=== PATIENT | female | born 1945 | race Caucasian/White ===

== ENCOUNTER 2018-07-09 20:37 | Inpatient (IN) | payer MEDICARE, MEDICAID | END 2018-07-16 17:30 | LOC: ED HOLD 07-10 01:04 → ER 20:37 → ICU 2S 07-10 05:05 → PCU 3S 07-15 16:45 | DX: I95.9 Hypotension, unspecified (principal); R65.11 Systemic inflammatory response syndrome (SIRS) of non-infectious origin with acute organ dysfunction; N17.9 Acute kidney failure, unspecified; J44.1 Chronic obstructive pulmonary disease with (acute) exacerbation; I48.91 Unspecified atrial fibrillation; I50.9 Heart failure, unspecified ==

== ENCOUNTER 2018-08-26 14:35 | Emergency (ER) | payer MEDICARE, MEDICAID ==
[~2018-08-26] VITALS: Ht 160 cm; Wt 140.0 kg
[~2018-08-26 14:35] MED LIST: ALBU2.5V13 NEB; ALBU8.5H8 INH; ALLO100T PO; APIX5TAB3 PO; BECL8.7A6 INH; CHLO25TA10 PO; COLC0.6T67 PO; COMMODE; DILT240C90 PO; ESOM20CA PO; FAMO40TA7 PO; FLUT16SP26 BOTHNARES; FURO40TA4 PO; HYDR-4353 PO; LEVO125T8 PO; LISI-232 PO; MONT10TA21 PO; OXYGEN; POTA10TA36 PO
[2018-08-26 14:37] VITALS: BP 143/37
[2018-08-26 15:14] LABS: BASOPHILS # (AUTO) 0.1 X10'3 (0-0.2); BASOPHILS % (AUTO) 0.7 % (0-1); EOSINOPHILS # (AUTO) 0.2 X10'3 (0-0.9); EOSINOPHILS % (AUTO) 1.9 % (0-6); HEMATOCRIT 33.4 % (35.0-45.0); HEMOGLOBIN 10.4 g/dl (12.0-16.0); LYMPHOCYTES # (AUTO) 2.6 X10'3 (1.1-4.8); LYMPHOCYTES % (AUTO) 26.5 % (21-51); MEAN CORPUSCULAR HEMOGLOBIN 25.8 PG (27.0-31.0); MEAN PLATELET VOLUME 7.6 FL (7.4-10.4); MONOCYTES % (AUTO) 9.7 % (2-12); NEUTROPHILS # (AUTO) 6.1 X10'3 (1.8-7.7); NEUTROPHILS % (AUTO) 61.2 % (42-75); PLATELET COUNT 439 X10'3 (140-440); RED BLOOD COUNT 4.02 X10'6 (4.20-5.60); RED CELL DISTRIBUTION WIDTH 19.1 % (11.5-14.5); WHITE BLOOD COUNT 9.9 X10'3 (4.5-11.0)
[2018-08-26 15:33] LABS: ALANINE AMINOTRANSFERASE 18 U/L (12-78); ALBUMIN 2.6 G/DL (3.4-5.0); ALBUMIN/GLOBULIN RATIO 0.7 (1.1-1.5); ALKALINE PHOSPHATASE 123 IU/L (46-116); ANION GAP 7 (8-16); ASPARTATE AMINO TRANSFERASE 14 U/L (10-37); BILIRUBIN,TOTAL 0.2 MG/DL (0.1-1.0); BLOOD UREA NITROGEN 22 MG/DL (7-18); BUN/CREATININE RATIO 13.2 (6.6-38.0); CALCIUM 8.8 MG/DL (8.5-10.1); CHLORIDE 107 MMOL/L (99-107); CREATININE 1.67 MG/DL (0.40-0.90); GLUCOSE 111 MG/DL (70-104); POTASSIUM 5.3 MMOL/L (3.5-5.1); SODIUM 139 MMOL/L (135-145); TOTAL CARBON DIOXIDE 25.4 MMOL/L (24-32); TOTAL PROTEIN 6.5 G/DL (6.4-8.2); eGFR 30 ML/MIN
[2018-08-26 15:44] LABS: ANISOCYTOSIS 2+; PLATELET ESTIMATE NORMAL; SCHISTOCYTES FEW
--- NOTE | 2018-08-26 18:55 | NUR ---
SENT HERE BY CLINIC DUE TO LOW HGB, LEVELS CHECKED AND BETTER THAN PREVIOUS VISIT AT 10
== END 2018-08-26 19:20 | disposition home or self-care (01) ==
LOC: ER 14:36
DX: E87.5 Hyperkalemia (principal); D64.9 Anemia, unspecified; I10 Essential (primary) hypertension; J44.9 Chronic obstructive pulmonary disease, unspecified; E03.9 Hypothyroidism, unspecified; Z90.49 Acquired absence of other specified parts of digestive tract; Z98.890 Other specified postprocedural states; Z88.0 Allergy status to penicillin; Z88.2 Allergy status to sulfonamides; Z79.01 Long term (current) use of anticoagulants; Z79.899 Other long term (current) drug therapy
CPT/HCPCS: 36415; 80053; 80162; 85025; 99283

== ENCOUNTER 2018-12-31 20:56 | Emergency (ER) | payer MEDICARE, MEDICAID ==
[~2018-12-31] VITALS: Ht 160 cm; Wt 115.5 kg
[2018-12-31 22:08] VITALS: BP 96/74
--- NOTE | 2018-12-31 22:10 | NUR ---
PT SLEEPING IN WHEELCHAIR WHEN ENTERED ROOM, PT DID NOT START COMPLAINING AND CRYING IN PAIN UNTIL AFTER I WOKE HER UP.
[2018-12-31] MEDS ORDERED: normal saline 1000ML IV soln IVB ONE (22:25)
[2018-12-31] MEDS ORDERED: ondansetron/PF 4mg/2ml inj IV ONE (22:25)
[2018-12-31] MEDS ORDERED: fentaNYL/PF 50MCG/1 ML 2ML syringe IV ONE (22:25)
[2018-12-31 22:57] LABS: BASOPHILS # (AUTO) 0.1 X10'3 (0-0.2); BASOPHILS % (AUTO) 0.6 % (0-1); EOSINOPHILS # (AUTO) 0.2 X10'3 (0-0.9); EOSINOPHILS % (AUTO) 1.4 % (0-6); HEMATOCRIT 32.5 % (35.0-45.0); HEMOGLOBIN 10.5 g/dl (12.0-16.0); LYMPHOCYTES # (AUTO) 2.5 X10'3 (1.1-4.8); LYMPHOCYTES % (AUTO) 19.8 % (21-51); MEAN CORPUSCULAR HEMOGLOBIN 27.2 PG (27.0-31.0); MEAN CORPUSCULAR HGB CONC 32.2 g/dL (33.0-36.5); MEAN CORPUSCULAR VOLUME 84.4 FL (78-98); MEAN PLATELET VOLUME 7.4 FL (7.4-10.4); MONOCYTES # (AUTO) 0.8 X10'3 (0-0.9); MONOCYTES % (AUTO) 6.2 % (2-12); PLATELET COUNT 400 X10'3 (140-440); RED BLOOD COUNT 3.85 X10'6 (4.20-5.60); RED CELL DISTRIBUTION WIDTH 18.8 % (11.5-14.5); WHITE BLOOD COUNT 12.5 X10'3 (4.5-11.0)
[2018-12-31 23:44] LABS: CLARITY,URINE CLEAR (Clear); COLOR,URINE YELLOW (Yellow); GLUCOSE, URINE NEGATIVE (Neg); KETONES,URINE NEGATIVE (Neg); LEUKOCYTE ESTERASE ,URINE NEGATIVE (Neg); NITRITES, URINE NEGATIVE (Neg); OCCULT BLOOD,URINE NEGATIVE (Neg); PROTEIN,URINE NEGATIVE (Neg); UROBILINOGEN,URINE 0.2 E.U/dL (0.2-1.0)
[2018-12-31 23:45] LABS: UA COLLECTION TYPE VOIDED
[2018-12-31 23:56] LABS: ALANINE AMINOTRANSFERASE 32 U/L (12-78); ALBUMIN/GLOBULIN RATIO 0.7 (1.1-1.5); ALKALINE PHOSPHATASE 179 IU/L (46-116); ANION GAP 8 (8-16); ASPARTATE AMINO TRANSFERASE 25 U/L (10-37); BILIRUBIN,TOTAL 0.4 MG/DL (0.1-1.0); BLOOD UREA NITROGEN 50 MG/DL (7-18); BUN/CREATININE RATIO 26.2 (6.6-38.0); CHLORIDE 103 MMOL/L (99-107); CREATININE 1.91 MG/DL (0.40-0.90); GLUCOSE 123 MG/DL (70-104); LIPASE 255 U/L (73-393); POTASSIUM 4.4 MMOL/L (3.5-5.1); SODIUM 137 MMOL/L (135-145); TOTAL CARBON DIOXIDE 26.5 MMOL/L (24-32); TOTAL PROTEIN 7.1 G/DL (6.4-8.2); eGFR 26 ML/MIN
[2019-01-01] MEDS ORDERED: morphine 4 MG/ML inj SYRINge IV ONE (00:10)
[2019-01-01] MEDS ORDERED: METH500T PO (00:26)
== END 2019-01-01 00:45 | disposition home or self-care (01) ==
LOC: ER 20:58
DX: R10.813 Right lower quadrant abdominal tenderness (principal); I10 Essential (primary) hypertension; J44.9 Chronic obstructive pulmonary disease, unspecified; E03.9 Hypothyroidism, unspecified; G89.29 Other chronic pain; Z87.442 Personal history of urinary calculi; Z90.49 Acquired absence of other specified parts of digestive tract; Z88.0 Allergy status to penicillin; Z88.2 Allergy status to sulfonamides; Z79.899 Other long term (current) drug therapy; Z79.2 Long term (current) use of antibiotics
CPT/HCPCS: 36415; 71045; 74176; 80053; 81003; 83690; 84145; 85025; 96374; 96375; 99284; J2270; J2405; J3010; J7040

== ENCOUNTER 2019-04-15 18:59 | Inpatient (IN) | payer MEDICARE, MEDICAID ==
[~2019-04-15] VITALS: Ht 160 cm; Wt 129.8 kg
[~2019-04-15 18:59] MED LIST changes: +ALBU18HF2 IH; +HYDR-3965 PO; +LEVO500T2 PO; +METH500T PO; +PRED20TA PO
[2019-04-15] MEDS ORDERED: ipratropium/albuterol 3ml nebule NEB ONE (19:25)
[2019-04-15] MEDS ORDERED: dexamethasone sod phosphate 10mg/ml inj IV STA (20:22)
[2019-04-15] MEDS ORDERED: CefTRIAXone 2gm/D5W 50ml 50 ML IV ONE (20:25)
[2019-04-15] MEDS ORDERED: albuterol 2.5 MG/3 ML nebule CONTNEB PRN (20:25)
[2019-04-15] MEDS ORDERED: azithromycin 250mg tablet PO ONE (20:25)
[2019-04-15 20:40] LABS: ABG BASE EXCESS 3.3 mmol/L (-2.0-3.0); ABG HCO3 29.1 mmol/L (22.0-26.0); ABG OXYGEN SATURATION 96.5 % (95-98); ABG PCO2 (T) 50.4 mmHg (35.0-45.0); ABG PH (T) 7.379 (7.350-7.450); ABG PO2 (T) 95.1 mmHg (83-108); ALLEN'S TEST Positive; FCOHb 0.5 % (0.5-1.5); FLOW 2 L/min; FMetHb 0.3 % (0.3-1.12); FO2Hb 95.7 % (94-100); TOTAL HEMOGLOBIN 10.4 G/dl (12.0-16.0)
[2019-04-15 21:07] LABS: BASOPHILS # (AUTO) 0.1 X10'3 (0-0.2); BASOPHILS % (AUTO) 0.8 % (0-1); EOSINOPHILS # (AUTO) 0.1 X10'3 (0-0.9); EOSINOPHILS % (AUTO) 1.1 % (0-6); HEMATOCRIT 31.3 % (35.0-45.0); LYMPHOCYTES % (AUTO) 21.5 % (21-51); MEAN CORPUSCULAR HEMOGLOBIN 27.4 PG (27.0-31.0); MEAN CORPUSCULAR HGB CONC 31.8 g/dL (33.0-36.5); MEAN CORPUSCULAR VOLUME 86.2 FL (78-98); MEAN PLATELET VOLUME 7.3 FL (7.4-10.4); MONOCYTES # (AUTO) 0.8 X10'3 (0-0.9); NEUTROPHILS # (AUTO) 6.4 X10'3 (1.8-7.7); NEUTROPHILS % (AUTO) 68.6 % (42-75); PLATELET COUNT 438 X10'3 (140-440); RED BLOOD COUNT 3.63 X10'6 (4.20-5.60); RED CELL DISTRIBUTION WIDTH 16.5 % (11.5-14.5); WHITE BLOOD COUNT 9.4 X10'3 (4.5-11.0)
[2019-04-15 21:16] LABS: ALANINE AMINOTRANSFERASE 17 U/L (12-78); ALBUMIN/GLOBULIN RATIO 0.7 (1.1-1.5); ALKALINE PHOSPHATASE 161 IU/L (46-116); ANION GAP 6 (8-16); ASPARTATE AMINO TRANSFERASE 17 U/L (10-37); BILIRUBIN,TOTAL 0.3 MG/DL (0.1-1.0); BLOOD UREA NITROGEN 21 MG/DL (7-18); BUN/CREATININE RATIO 16.9 (6.6-38.0); CALCIUM 8.9 MG/DL (8.5-10.1); CHLORIDE 101 MMOL/L (99-107); CREATININE 1.24 MG/DL (0.40-0.90); GLUCOSE 106 MG/DL (70-104); POTASSIUM 4.2 MMOL/L (3.5-5.1); SODIUM 140 MMOL/L (135-145); TOTAL CARBON DIOXIDE 33.3 MMOL/L (24-32); TOTAL PROTEIN 7.5 G/DL (6.4-8.2); eGFR 42 ML/MIN
[2019-04-15] MEDS ORDERED: HYDR-4383 PO (21:30)
[2019-04-15] MEDS ORDERED: acetaminophen 325mg tablet PO PRN (21:35)
[2019-04-15] MEDS ORDERED: potassium CL 10mEq/100ml bag 100 ML IV PRN ×2 (21:35)
[2019-04-15] MEDS ORDERED: magnesium 2GM in 50ml NS 50 ML IV PRN (21:35)
[2019-04-15] MEDS ORDERED: magnesium Cl slow-release 64mg tablet PO PRN (21:35)
[2019-04-15] MEDS ORDERED: magnesium hydroxide 30ml (MOM) UD suspension PO PRN (21:35)
[2019-04-15] MEDS ORDERED: mag hydrox/Alum hydrox/simeth 30ml oral suspension PO PRN (21:35)
[2019-04-15] MEDS ORDERED: morphine 2 MG/ML inj. syringe IV PRN ×2 (21:35)
[2019-04-15] MEDS ORDERED: magnesium 4gm in 100ml NS 100 ML IV PRN (21:35)
[2019-04-15] MEDS ORDERED: ondansetron/PF 4mg/2ml inj IV PRN (21:35)
[2019-04-15] MEDS ORDERED: potassium Cl 20 mEq SR tablet PO PRN ×2 (21:35)
--- NOTE | 2019-04-15 21:51 | NUR ---
relieving RN for break, pt is resting quietly on gurney, gave pt warm blankets, resp even and unlabored,
[2019-04-15] MEDS: HYDROcodone/acetaminophen 5mg/325mg tablet PO PRN (23:49)
[2019-04-16] VITALS: BP 139/76
[2019-04-16] MEDS ORDERED: colchicine 0.6mg tablet PO PRN (01:05)
[2019-04-16] MEDS ORDERED: HYDROcodone/acetaminophen 5mg/325mg tablet PO PRN (01:05)
[2019-04-16] MEDS: HYDROcodone/acetaminophen 5mg/325mg tablet PO PRN ×4 (04:53→21:40)
[2019-04-16 05:21] LABS: BASOPHILS % (AUTO) 0.2 % (0-1); EOSINOPHILS % (AUTO) 0 % (0-6); HEMATOCRIT 30.5 % (35.0-45.0); HEMOGLOBIN 9.7 g/dl (12.0-16.0); LYMPHOCYTES # (AUTO) 0.7 X10'3 (1.1-4.8); LYMPHOCYTES % (AUTO) 7.4 % (21-51); MEAN CORPUSCULAR HEMOGLOBIN 26.9 PG (27.0-31.0); MEAN CORPUSCULAR HGB CONC 31.7 g/dL (33.0-36.5); MEAN CORPUSCULAR VOLUME 85.1 FL (78-98); MEAN PLATELET VOLUME 7.3 FL (7.4-10.4); MONOCYTES # (AUTO) 0.1 X10'3 (0-0.9); MONOCYTES % (AUTO) 0.7 % (2-12); NEUTROPHILS # (AUTO) 8.4 X10'3 (1.8-7.7); NEUTROPHILS % (AUTO) 91.7 % (42-75); PLATELET COUNT 433 X10'3 (140-440); RED BLOOD COUNT 3.58 X10'6 (4.20-5.60); RED CELL DISTRIBUTION WIDTH 16.4 % (11.5-14.5); WHITE BLOOD COUNT 9.2 X10'3 (4.5-11.0)
[2019-04-16 05:58] LABS: ALBUMIN 2.8 G/DL (3.4-5.0); ANION GAP 7 (8-16); BLOOD UREA NITROGEN 21 MG/DL (7-18); BUN/CREATININE RATIO 16.3 (6.6-38.0); CALCIUM 8.8 MG/DL (8.5-10.1); CHLORIDE 101 MMOL/L (99-107); CREATININE 1.29 MG/DL (0.40-0.90); GLUCOSE 152 MG/DL (70-104); MAGNESIUM 1.9 MG/DL (1.5-2.4); POTASSIUM 4.4 MMOL/L (3.5-5.1); SODIUM 139 MMOL/L (135-145); TOTAL CARBON DIOXIDE 30.8 MMOL/L (24-32); eGFR 40 ML/MIN
--- NOTE | 2019-04-16 06:15 | NUR ---
Patient in room ALEX 347. I have received report from Devin GARNER and had the opportunity to ask questions and assume patient care.
--- NOTE | 2019-04-16 06:20 | NUR ---
Problems reprioritized. Patient report given, questions answered & plan of care reviewed with Misael GARNER.
[2019-04-16] MEDS: ipratropium/albuterol 3ml nebule NEB SCH ×4 (07:37→19:59)
[2019-04-16 08:00] VITALS: BP 121/84
[2019-04-16] MEDS ORDERED: non-formulary drug (Esomeprazole Magnesium (Nexium) 1 CAP) PO SCH (08:00)
[2019-04-16] MEDS ORDERED: FLU VACC QS2019-20 36MOS UP/PF 60 MCG/0.5 ML SYRINGE IMVAC ONE (10:00)
[2019-04-16] MEDS: lactobacillus rhamnosus 10,000 MMU CELLS/CAPSULE PO SCH ×2 (10:14→19:50)
[2019-04-16] MEDS: chlorthalidone 25mg tablet PO SCH (10:14)
[2019-04-16] MEDS: potassium chloride 10mEq ER tablet PO SCH (10:15)
[2019-04-16] MEDS: diltiazem CD 120mg capsule (once-daily) PO SCH (10:15)
[2019-04-16] MEDS: apixaban 5mg tablet PO SCH ×2 (10:15→19:50)
[2019-04-16] MEDS: predniSONE 20 mg tablet PO SCH (10:15)
[2019-04-16] MEDS: azithromycin 250mg tablet PO SCH (10:16)
[2019-04-16] MEDS: allopurinol 100mg tablet PO SCH (10:16)
[2019-04-16] MEDS: montelukast 10mg tablet PO SCH (10:16)
[2019-04-16] MEDS: fluticasone nasal spray 16GM bottle NS SCH (10:17)
[2019-04-16] MEDS: levoTHYROXINE 125mcg tablet PO SCH (10:17)
[2019-04-16] MEDS: furosemide 40mg tablet PO SCH (10:17)
[2019-04-16] MEDS: famotidine 20mg tablet PO SCH (10:19)
[2019-04-16] MEDS: K and/or MAG REPLACEMENT MC SCH (10:29)
[2019-04-16 11:00] VITALS: BP 120/81
--- NOTE | 2019-04-16 18:37 | NUR ---
Patient in room ALEX 347. I have received report from URMILA GARNER and had the opportunity to ask questions and assume patient care. Addendum: 04/16/19 at 1837 by Sheila Cavanaugh RN Amended: Links added.
--- NOTE | 2019-04-16 18:40 | NUR ---
Problems reprioritized. Patient report given, questions answered & plan of care reviewed with Sheila GARNER.
[2019-04-16] MEDS: CefTRIAXone 2gm/D5W 50ml 50 ML IV SCH (19:51)
[2019-04-16 20:00] VITALS: BP 133/85
[2019-04-16] MEDS: cyclobenzaprine 10mg tablet PO PRN (20:22)
--- NOTE | 2019-04-16 21:41 | NUR ---
medicated with norco for pain /10 pt stated it was at a 5 but flexeril helped but needs the norco too.
--- NOTE | 2019-04-16 23:05 | NUR ---
pt awake and up to brp at this time.
[2019-04-16] MEDS: ipratropium/albuterol 3ml nebule NEB PRN (23:27)
[2019-04-17] VITALS: BP_SYST 113; BP_SYST 131; BP_DIAS 72; BP_DIAS 87
--- NOTE | 2019-04-17 00:20 | NUR ---
pt resting without changes.
--- NOTE | 2019-04-17 02:25 | NUR ---
pt resting eyes closed without changes.
[2019-04-17] MEDS: ipratropium/albuterol 3ml nebule NEB PRN ×2 (03:17→23:37)
--- NOTE | 2019-04-17 04:21 | NUR ---
resting eyes closed without changes.
--- NOTE | 2019-04-17 05:01 | NUR ---
pt resting without changes.
[2019-04-17] MEDS: HYDROcodone/acetaminophen 5mg/325mg tablet PO PRN ×3 (06:05→21:37)
[2019-04-17] MEDS: cyclobenzaprine 10mg tablet PO PRN ×3 (06:07→23:26)
--- NOTE | 2019-04-17 06:20 | NUR ---
Problems reprioritized. Patient report given, questions answered & plan of care reviewed with Silvano Giron. Addendum: 04/17/19 at 0717 by Sheila Cavanaugh RN Amended: Links added.
--- NOTE | 2019-04-17 06:41 | NUR ---
Patient in room ALEX 346. I have received report from PATSY Sosa and had the opportunity to ask questions and assume patient care.
[2019-04-17] MEDS: ipratropium/albuterol 3ml nebule NEB SCH ×4 (06:48→19:19)
[2019-04-17 06:59] LABS: BASOPHILS % (AUTO) 0.1 % (0-1); EOSINOPHILS % (AUTO) 0 % (0-6); HEMATOCRIT 27.4 % (35.0-45.0); HEMOGLOBIN 8.7 g/dl (12.0-16.0); LYMPHOCYTES # (AUTO) 1.1 X10'3 (1.1-4.8); LYMPHOCYTES % (AUTO) 8.3 % (21-51); MEAN CORPUSCULAR HEMOGLOBIN 26.9 PG (27.0-31.0); MEAN CORPUSCULAR HGB CONC 31.7 g/dL (33.0-36.5); MEAN CORPUSCULAR VOLUME 84.8 FL (78-98); MEAN PLATELET VOLUME 7.2 FL (7.4-10.4); MONOCYTES # (AUTO) 0.9 X10'3 (0-0.9); MONOCYTES % (AUTO) 6.7 % (2-12); NEUTROPHILS # (AUTO) 11.5 X10'3 (1.8-7.7); NEUTROPHILS % (AUTO) 84.9 % (42-75); PLATELET COUNT 400 X10'3 (140-440); RED BLOOD COUNT 3.24 X10'6 (4.20-5.60); RED CELL DISTRIBUTION WIDTH 16.3 % (11.5-14.5); WHITE BLOOD COUNT 13.6 X10'3 (4.5-11.0)
[2019-04-17 07:04] LABS: ALBUMIN 2.9 G/DL (3.4-5.0); ANION GAP 5 (8-16); BLOOD UREA NITROGEN 29 MG/DL (7-18); BUN/CREATININE RATIO 19.7 (6.6-38.0); CALCIUM 8.8 MG/DL (8.5-10.1); CHLORIDE 101 MMOL/L (99-107); CREATININE 1.47 MG/DL (0.40-0.90); GLUCOSE 114 MG/DL (70-104); MAGNESIUM 1.8 MG/DL (1.5-2.4); POTASSIUM 4.2 MMOL/L (3.5-5.1); SODIUM 137 MMOL/L (135-145); TOTAL CARBON DIOXIDE 31.1 MMOL/L (24-32); eGFR 35 ML/MIN
[2019-04-17] MEDS: famotidine 20mg tablet PO SCH (07:50)
[2019-04-17] MEDS: azithromycin 250mg tablet PO SCH (07:50)
[2019-04-17] MEDS: levoTHYROXINE 125mcg tablet PO SCH (07:50)
[2019-04-17] MEDS: potassium chloride 10mEq ER tablet PO SCH (07:50)
[2019-04-17] MEDS: fluticasone nasal spray 16GM bottle NS SCH (07:50)
[2019-04-17] MEDS: chlorthalidone 25mg tablet PO SCH (07:50)
[2019-04-17] MEDS: apixaban 5mg tablet PO SCH ×2 (07:50→21:37)
[2019-04-17] MEDS: montelukast 10mg tablet PO SCH (07:51)
[2019-04-17] MEDS: lactobacillus rhamnosus 10,000 MMU CELLS/CAPSULE PO SCH ×2 (07:51→21:37)
[2019-04-17] MEDS: furosemide 40mg tablet PO SCH (07:51)
[2019-04-17] MEDS: predniSONE 20 mg tablet PO SCH (07:51)
[2019-04-17] MEDS: diltiazem CD 120mg capsule (once-daily) PO SCH (07:51)
[2019-04-17] MEDS: allopurinol 100mg tablet PO SCH (07:51)
[2019-04-17 08:00] VITALS: BP 112/82
[2019-04-17] MEDS: K and/or MAG REPLACEMENT MC SCH (08:00)
[2019-04-17 11:00] VITALS: BP 124/73
[2019-04-17] MEDS ORDERED: furosemide 40mg/4ml inj IV ONE (12:10)
[2019-04-17] MEDS: methylPREDNISolone sod succ 125mg/2ml vial IV SCH ×2 (15:52→23:26)
[2019-04-17 18:00] VITALS: BP 144/60
--- NOTE | 2019-04-17 18:15 | NUR ---
Patient in room ALEX 346. I have received report from Silvano Giron and had the opportunity to ask questions and assume patient care. Addendum: 04/18/19 at 0046 by Sheila Cavanaugh RN Amended: Links added.
--- NOTE | 2019-04-17 18:45 | NUR ---
Problems reprioritized. Patient report given, questions answered & plan of care reviewed with PATSY Sosa.
--- NOTE | 2019-04-17 20:00 | NUR ---
pt up ambulating in the room no s&s of distress at this time.
--- NOTE | 2019-04-17 21:20 | NUR ---
pt a/o repositioned self in room and up to Brp. teaching done as to why she is now getting solumedrol. pt with expiratory wheezes. up using brp tolerating well. hs meds done and medicated for pain with po norco. pt states she is getting better pain releif and is is getting better rest with what we are doing for her with the norco po and flexeril as she needs it every 8 hours.
[2019-04-17] MEDS: CefTRIAXone 2gm/D5W 50ml 50 ML IV SCH (21:36)
--- NOTE | 2019-04-17 23:38 | NUR ---
medicated with flexeril for back pain. kasi with this is helping her with better pain relief, per her words.
[2019-04-17 23:57] VITALS: BP 126/91
--- NOTE | 2019-04-18 00:50 | NUR ---
pt resting on her side with eyes closed and no s&s of distress at this time.
--- NOTE | 2019-04-18 01:40 | NUR ---
pt medicated for pain with norco 5 po and positioned to comfort. pt pleasant pain 5-6/10 and repositioned self in bed.
[2019-04-18] MEDS: HYDROcodone/acetaminophen 5mg/325mg tablet PO PRN ×3 (01:44→17:13)
[2019-04-18] MEDS: ipratropium/albuterol 3ml nebule NEB PRN ×2 (03:12→23:31)
--- NOTE | 2019-04-18 03:40 | NUR ---
pt resting without changes or s&s of distress at this time.
[2019-04-18 04:20] LABS: ALBUMIN 2.8 G/DL (3.4-5.0); ANION GAP 6 (8-16); BLOOD UREA NITROGEN 35 MG/DL (7-18); BUN/CREATININE RATIO 20.7 (6.6-38.0); CALCIUM 8.8 MG/DL (8.5-10.1); CHLORIDE 99 MMOL/L (99-107); CREATININE 1.69 MG/DL (0.40-0.90); GLUCOSE 135 MG/DL (70-104); MAGNESIUM 1.8 MG/DL (1.5-2.4); POTASSIUM 4.8 MMOL/L (3.5-5.1); SODIUM 136 MMOL/L (135-145); TOTAL CARBON DIOXIDE 30.6 MMOL/L (24-32); eGFR 29 ML/MIN
[2019-04-18 04:23] LABS: BASOPHILS % (AUTO) 0 % (0-1); EOSINOPHILS % (AUTO) 0 % (0-6); HEMATOCRIT 28.4 % (35.0-45.0); LYMPHOCYTES # (AUTO) 0.7 X10'3 (1.1-4.8); LYMPHOCYTES % (AUTO) 6.1 % (21-51); MEAN CORPUSCULAR HEMOGLOBIN 26.7 PG (27.0-31.0); MEAN CORPUSCULAR HGB CONC 31.7 g/dL (33.0-36.5); MEAN CORPUSCULAR VOLUME 84.3 FL (78-98); MEAN PLATELET VOLUME 7.4 FL (7.4-10.4); MONOCYTES # (AUTO) 0.2 X10'3 (0-0.9); MONOCYTES % (AUTO) 1.8 % (2-12); NEUTROPHILS # (AUTO) 10.1 X10'3 (1.8-7.7); NEUTROPHILS % (AUTO) 92.1 % (42-75); PLATELET COUNT 386 X10'3 (140-440); RED BLOOD COUNT 3.36 X10'6 (4.20-5.60); RED CELL DISTRIBUTION WIDTH 16.5 % (11.5-14.5)
--- NOTE | 2019-04-18 06:44 | NUR ---
Problems reprioritized. Patient report given, questions answered & plan of care reviewed with Cesia Giron. Addendum: 04/18/19 at 0644 by Sheila Cavanaugh RN Amended: Links added.
[2019-04-18 07:00] VITALS: BP 123/55
--- NOTE | 2019-04-18 07:03 | NUR ---
Patient in room ALEX 346. I have received report from Sheila GARNER and had the opportunity to ask questions and assume patient care.
[2019-04-18] MEDS: ipratropium/albuterol 3ml nebule NEB SCH ×4 (07:36→19:41)
[2019-04-18] MEDS ORDERED: furosemide 40mg/4ml inj IV SCH ×2 (08:00→20:00)
[2019-04-18] MEDS: K and/or MAG REPLACEMENT MC SCH (08:00)
[2019-04-18] MEDS: montelukast 10mg tablet PO SCH (08:14)
[2019-04-18] MEDS: lactobacillus rhamnosus 10,000 MMU CELLS/CAPSULE PO SCH ×2 (08:14→20:22)
[2019-04-18] MEDS: apixaban 5mg tablet PO SCH ×2 (08:14→20:22)
[2019-04-18] MEDS: azithromycin 250mg tablet PO SCH (08:14)
[2019-04-18] MEDS: famotidine 20mg tablet PO SCH (08:14)
[2019-04-18] MEDS: diltiazem CD 120mg capsule (once-daily) PO SCH (08:15)
[2019-04-18] MEDS: allopurinol 100mg tablet PO SCH (08:15)
[2019-04-18] MEDS: levoTHYROXINE 125mcg tablet PO SCH (08:15)
[2019-04-18] MEDS: potassium chloride 10mEq ER tablet PO SCH (08:15)
[2019-04-18] MEDS: methylPREDNISolone sod succ 125mg/2ml vial IV SCH ×2 (08:16→15:41)
[2019-04-18] MEDS: fluticasone nasal spray 16GM bottle NS SCH (08:41)
[2019-04-18] MEDS: cyclobenzaprine 10mg tablet PO PRN ×2 (10:05→20:22)
[2019-04-18 12:23] VITALS: BP 116/62
[2019-04-18 18:30] VITALS: BP 122/60
--- NOTE | 2019-04-18 18:40 | NUR ---
Patient in room ALEX 346. I have received report from Cesia GARNER and had the opportunity to ask questions and assume patient care.
--- NOTE | 2019-04-18 19:00 | NUR ---
Problems reprioritized. Patient report given, questions answered & plan of care reviewed with Brittany Giron.
[2019-04-18] MEDS: CefTRIAXone 2gm/D5W 50ml 50 ML IV SCH (20:22)
[2019-04-19] VITALS: BP 127/91
[2019-04-19] MEDS: HYDROcodone/acetaminophen 5mg/325mg tablet PO PRN ×5 (00:02→20:23)
[2019-04-19] MEDS: methylPREDNISolone sod succ 125mg/2ml vial IV SCH ×4 (00:04→23:08)
[2019-04-19] MEDS: ipratropium/albuterol 3ml nebule NEB PRN (03:02)
[2019-04-19 05:19] LABS: BASOPHILS % (AUTO) 0.1 % (0-1); EOSINOPHILS % (AUTO) 0 % (0-6); HEMATOCRIT 29.7 % (35.0-45.0); HEMOGLOBIN 9.4 g/dl (12.0-16.0); LYMPHOCYTES # (AUTO) 0.8 X10'3 (1.1-4.8); LYMPHOCYTES % (AUTO) 6.3 % (21-51); MEAN CORPUSCULAR HEMOGLOBIN 26.8 PG (27.0-31.0); MEAN CORPUSCULAR HGB CONC 31.8 g/dL (33.0-36.5); MEAN CORPUSCULAR VOLUME 84.3 FL (78-98); MEAN PLATELET VOLUME 7.6 FL (7.4-10.4); MONOCYTES # (AUTO) 0.3 X10'3 (0-0.9); MONOCYTES % (AUTO) 2.2 % (2-12); NEUTROPHILS # (AUTO) 11.2 X10'3 (1.8-7.7); NEUTROPHILS % (AUTO) 91.4 % (42-75); PLATELET COUNT 416 X10'3 (140-440); RED BLOOD COUNT 3.52 X10'6 (4.20-5.60); RED CELL DISTRIBUTION WIDTH 16.1 % (11.5-14.5); WHITE BLOOD COUNT 12.2 X10'3 (4.5-11.0)
[2019-04-19 05:33] LABS: ALBUMIN 3.1 G/DL (3.4-5.0); ANION GAP 8 (8-16); BLOOD UREA NITROGEN 42 MG/DL (7-18); BUN/CREATININE RATIO 21.9 (6.6-38.0); CALCIUM 9.1 MG/DL (8.5-10.1); CHLORIDE 95 MMOL/L (99-107); CREATININE 1.92 MG/DL (0.40-0.90); GLUCOSE 174 MG/DL (70-104); MAGNESIUM 1.8 MG/DL (1.5-2.4); POTASSIUM 4.6 MMOL/L (3.5-5.1); SODIUM 132 MMOL/L (135-145); TOTAL CARBON DIOXIDE 29.3 MMOL/L (24-32); eGFR 25 ML/MIN
--- NOTE | 2019-04-19 06:15 | NUR ---
Problems reprioritized. Patient report given, questions answered & plan of care reviewed with Cesia GARNER.
--- NOTE | 2019-04-19 06:26 | NUR ---
Patient in room ALEX 346. I have received report from Cesia and had the opportunity to ask questions and assume patient care.
--- NOTE | 2019-04-19 06:26 | NUR ---
Patient in room ALEX 346. I have received report from Sheila GARNER and had the opportunity to ask questions and assume patient care. Addendum: 04/19/19 at 0641 by Cesia Tillman RN Patient in room ALEX 346. I have received report from Brittany GARNER and had the opportunity to ask questions and assume patient care.
[2019-04-19] MEDS: ipratropium/albuterol 3ml nebule NEB SCH ×4 (07:17→19:17)
[2019-04-19] MEDS: fluticasone nasal spray 16GM bottle NS SCH (07:43)
[2019-04-19] MEDS: diltiazem CD 120mg capsule (once-daily) PO SCH (07:43)
[2019-04-19] MEDS: potassium chloride 10mEq ER tablet PO SCH (07:44)
[2019-04-19] MEDS: lactobacillus rhamnosus 10,000 MMU CELLS/CAPSULE PO SCH ×2 (07:44→20:22)
[2019-04-19] MEDS: apixaban 5mg tablet PO SCH ×2 (07:44→20:22)
[2019-04-19] MEDS: famotidine 20mg tablet PO SCH (07:45)
[2019-04-19] MEDS: montelukast 10mg tablet PO SCH (07:45)
[2019-04-19] MEDS: levoTHYROXINE 125mcg tablet PO SCH (07:46)
[2019-04-19] MEDS: azithromycin 250mg tablet PO SCH (07:46)
[2019-04-19] MEDS: allopurinol 100mg tablet PO SCH (07:46)
[2019-04-19 08:00] VITALS: BP 134/84
[2019-04-19] MEDS: K and/or MAG REPLACEMENT MC SCH (08:00)
[2019-04-19] MEDS: cyclobenzaprine 10mg tablet PO PRN ×2 (10:31→22:56)
--- NOTE | 2019-04-19 10:57 | NUR ---
Pt was able to ambulate to her door w oxygen, but was still SOB and had to return to bed. Addendum: 04/19/19 at 1100 by Deacon KLINE Amended: Links added.
--- NOTE | 2019-04-19 11:34 | NUR ---
Student documentation: I have reviewed and agree with all interventions, assessments performed and documented by Deacon, chief nursing officer.
--- NOTE | 2019-04-19 11:34 | NUR ---
Student Medication Administration: For this medication-pass time frame, all medication were reviewed, dispensed, administered and documented per hospital policy by Deacon assistant in nursing.
--- NOTE | 2019-04-19 12:03 | NUR ---
Patient report given to Cesia, questions answered & plan of care reviewed with .
[2019-04-19 18:30] VITALS: BP 127/70
--- NOTE | 2019-04-19 18:36 | NUR ---
Problems reprioritized. Patient report given, questions answered & plan of care reviewed with Brittany Giron.
--- NOTE | 2019-04-19 18:40 | NUR ---
Patient in room ALEX 346. I have received report from Cesia GARNER and had the opportunity to ask questions and assume patient care.
[2019-04-19] MEDS: CefTRIAXone 2gm/D5W 50ml 50 ML IV SCH (20:24)
[2019-04-20] VITALS: BP 130/58
[2019-04-20] MEDS: ipratropium/albuterol 3ml nebule NEB PRN ×2 (03:52→22:53)
--- NOTE | 2019-04-20 04:00 | NUR ---
Patient just aoke and had slid down in the bed. Patient was panicked and needed help to sit up. RT called for a BR TX.
[2019-04-20 05:10] LABS: BASOPHILS % (AUTO) 0.1 % (0-1); EOSINOPHILS % (AUTO) 0 % (0-6); HEMATOCRIT 30.8 % (35.0-45.0); HEMOGLOBIN 9.5 g/dl (12.0-16.0); LYMPHOCYTES # (AUTO) 0.6 X10'3 (1.1-4.8); MEAN CORPUSCULAR HGB CONC 30.8 g/dL (33.0-36.5); MEAN CORPUSCULAR VOLUME 84.4 FL (78-98); MEAN PLATELET VOLUME 7.7 FL (7.4-10.4); MONOCYTES # (AUTO) 0.5 X10'3 (0-0.9); MONOCYTES % (AUTO) 3.9 % (2-12); NEUTROPHILS # (AUTO) 10.8 X10'3 (1.8-7.7); PLATELET COUNT 426 X10'3 (140-440); RED BLOOD COUNT 3.65 X10'6 (4.20-5.60); RED CELL DISTRIBUTION WIDTH 16.8 % (11.5-14.5); WHITE BLOOD COUNT 11.9 X10'3 (4.5-11.0)
[2019-04-20 05:13] LABS: ALBUMIN 3.2 G/DL (3.4-5.0); ANION GAP 10 (8-16); BLOOD UREA NITROGEN 52 MG/DL (7-18); BUN/CREATININE RATIO 25.4 (6.6-38.0); CALCIUM 9.1 MG/DL (8.5-10.1); CHLORIDE 97 MMOL/L (99-107); CREATININE 2.05 MG/DL (0.40-0.90); GLUCOSE 178 MG/DL (70-104); POTASSIUM 4.9 MMOL/L (3.5-5.1); SODIUM 135 MMOL/L (135-145); TOTAL CARBON DIOXIDE 28.4 MMOL/L (24-32); eGFR 24 ML/MIN
[2019-04-20] MEDS: HYDROcodone/acetaminophen 5mg/325mg tablet PO PRN ×2 (05:25→21:06)
--- NOTE | 2019-04-20 06:40 | NUR ---
Problems reprioritized. Patient report given, questions answered & plan of care reviewed with Priyanka GARNER.
[2019-04-20] MEDS: K and/or MAG REPLACEMENT MC SCH (07:49)
[2019-04-20] MEDS: ipratropium/albuterol 3ml nebule NEB SCH ×5 (07:50→19:31)
[2019-04-20 07:52] VITALS: BP 143/65
[2019-04-20] MEDS: fluticasone nasal spray 16GM bottle NS SCH (08:10)
[2019-04-20] MEDS: diltiazem CD 120mg capsule (once-daily) PO SCH (08:10)
[2019-04-20] MEDS: lactobacillus rhamnosus 10,000 MMU CELLS/CAPSULE PO SCH ×2 (08:10→21:04)
[2019-04-20] MEDS: famotidine 20mg tablet PO SCH (08:11)
[2019-04-20] MEDS: levoTHYROXINE 125mcg tablet PO SCH (08:11)
[2019-04-20] MEDS: montelukast 10mg tablet PO SCH (08:11)
[2019-04-20] MEDS: potassium chloride 10mEq ER tablet PO SCH (08:11)
[2019-04-20] MEDS: apixaban 5mg tablet PO SCH ×2 (08:11→21:04)
[2019-04-20] MEDS: allopurinol 100mg tablet PO SCH (08:12)
[2019-04-20] MEDS: methylPREDNISolone sod succ 125mg/2ml vial IV SCH (08:16)
[2019-04-20 08:22] VITALS: BP 135/82
[2019-04-20 11:00] VITALS: BP 137/87
[2019-04-20] MEDS: normal saline 1000ml 1,000 ML IV SCH (12:31)
--- NOTE | 2019-04-20 15:18 | NUR ---
Initial: Pt admitted for SOB r/t COPD. Pt eating well, PO intake averaging 75%. Pt has increased protein need r/t COPD, however pt meeting protein needs at this time. BG elevated documented at 106-178mg/dL, consider carb controlled diet if BG trend continues upward. Elevated BG may be r/t pt receiving steroids. [facility] 04/19. Will continue to monitor. Rec: 1. Continue Heart Healthy diet 2. Consider carb controlled diet if BG continues to elevate 3. Bowel care as needed 4. Weight per rx Addendum: 04/20/19 at 1519 by Wing Harrison PAREDES Amended: Links added. Addendum: 04/20/19 at [address] RD agree with senior insight manager international note
[2019-04-20] MEDS: methylPREDNISolone sod succ/PF 40mg inj. IV SCH (16:12)
--- NOTE | 2019-04-20 18:21 | NUR ---
Problems reprioritized. Patient report given, questions answered & plan of care reviewed with PATSY Soto.
[2019-04-20 18:30] VITALS: BP 149/83
--- NOTE | 2019-04-20 18:30 | NUR ---
Patient in room ALEX 346. I have received report from Cesia GARNER and had the opportunity to ask questions and assume patient care.
[2019-04-20] MEDS: CefTRIAXone 2gm/D5W 50ml 50 ML IV SCH (21:05)
[2019-04-21] VITALS: BP 127/77
[2019-04-21] MEDS: methylPREDNISolone sod succ/PF 40mg inj. IV SCH ×2 (00:19→08:23)
[2019-04-21] MEDS: normal saline 1000ml 1,000 ML IV SCH (04:16)
--- NOTE | 2019-04-21 06:51 | NUR ---
Problems reprioritized. Patient report given, questions answered & plan of care reviewed with Michelle GARNER.
--- NOTE | 2019-04-21 06:53 | NUR ---
Patient in room ALEX 346. I have received report from Brittany GARNER and had the opportunity to ask questions and assume patient care.
[2019-04-21 07:01] VITALS: BP 149/96
[2019-04-21] MEDS: ipratropium/albuterol 3ml nebule NEB SCH ×2 (07:21→10:53)
--- NOTE | 2019-04-21 07:27 | NUR ---
patient stated last 04/20/19 Addendum: 04/21/19 at 0730 by Vargas KLINE Amended: Links added.
[2019-04-21 07:43] VITALS: BP 142/88
[2019-04-21] MEDS: K and/or MAG REPLACEMENT MC SCH (08:00)
[2019-04-21] MEDS: diltiazem CD 120mg capsule (once-daily) PO SCH (08:26)
[2019-04-21] MEDS: lactobacillus rhamnosus 10,000 MMU CELLS/CAPSULE PO SCH (08:26)
[2019-04-21] MEDS: famotidine 20mg tablet PO SCH (08:27)
[2019-04-21] MEDS: apixaban 5mg tablet PO SCH (08:27)
[2019-04-21] MEDS: montelukast 10mg tablet PO SCH (08:27)
[2019-04-21] MEDS: levoTHYROXINE 125mcg tablet PO SCH (08:28)
[2019-04-21] MEDS: allopurinol 100mg tablet PO SCH (08:28)
[2019-04-21] MEDS: fluticasone nasal spray 16GM bottle NS SCH (08:30)
[2019-04-21] MEDS: HYDROcodone/acetaminophen 5mg/325mg tablet PO PRN (08:34)
[2019-04-21 10:58] LABS: BASOPHILS % (AUTO) 0.2 % (0-1); EOSINOPHILS % (AUTO) 0 % (0-6); HEMATOCRIT 29.2 % (35.0-45.0); HEMOGLOBIN 9.1 g/dl (12.0-16.0); LYMPHOCYTES # (AUTO) 0.6 X10'3 (1.1-4.8); LYMPHOCYTES % (AUTO) 4.2 % (21-51); MEAN CORPUSCULAR HEMOGLOBIN 26.2 PG (27.0-31.0); MEAN CORPUSCULAR VOLUME 84.3 FL (78-98); MEAN PLATELET VOLUME 7.4 FL (7.4-10.4); MONOCYTES # (AUTO) 0.6 X10'3 (0-0.9); MONOCYTES % (AUTO) 4.7 % (2-12); NEUTROPHILS # (AUTO) 12.1 X10'3 (1.8-7.7); NEUTROPHILS % (AUTO) 90.9 % (42-75); PLATELET COUNT 355 X10'3 (140-440); RED BLOOD COUNT 3.47 X10'6 (4.20-5.60); RED CELL DISTRIBUTION WIDTH 16.6 % (11.5-14.5); WHITE BLOOD COUNT 13.3 X10'3 (4.5-11.0)
[2019-04-21 11:22] LABS: ANION GAP 8 (8-16); BLOOD UREA NITROGEN 48 MG/DL (7-18); CALCIUM 8.6 MG/DL (8.5-10.1); CHLORIDE 100 MMOL/L (99-107); CREATININE 1.55 MG/DL (0.40-0.90); GLUCOSE 184 MG/DL (70-104); SODIUM 136 MMOL/L (135-145); eGFR 33 ML/MIN
[2019-04-21 11:26] LABS: POTASSIUM 4.2 MMOL/L (3.5-5.1)
[2019-04-21] MEDS: potassium chloride 10mEq ER tablet PO SCH (11:41)
[2019-04-21 11:57] VITALS: BP 135/82
[2019-04-21] MEDS ORDERED: HYDR-4383 PO ×2 (12:50→14:43)
[2019-04-21] MEDS ORDERED: LEVO500T89 PO (12:50)
[2019-04-21] MEDS ORDERED: PRED10TA23 PO (12:50)
[2019-04-21] MEDS ORDERED: CYCL-1 PO (12:50)
--- NOTE | 2019-04-21 14:06 | NUR ---
Ambulated pt 100 feet with front wheel walker on 2L O2 via NC, followed by wheelchair for when she needed to sit and rest. Pt able to independently get up out of the wheelchair and walk with her walker, however needed to sit and rest in the wheelchair 3 times. Encouraged her to slow her breathing and use pursed lip breathing to help catch her breath. Pt safely back to bed. Addendum: 04/21/19 at 1409 by Delaney KLINE Amended: Links added.
--- NOTE | 2019-04-21 15:24 | NUR ---
Patient discharged with all belongings. Daughter to take pt home, W/C to front lobby. Discharge instructions gone over with pt and signed. [place] triplicate given to pt with discharge packet.
--- NOTE | 2019-04-21 16:57 | NUR ---
Student documentation: I have reviewed all interventions, assessments performed and documented by Delaney MURILLO
== END 2019-04-21 15:21 | disposition home health service (06) | DRG 190 ==
LOC: ER 19:00 → ED HOLD 22:23 → SUR 3N 23:59
PROVIDERS: ADMIT Hospitalist; ATTEND Family Medicine
DX: J44.1 Chronic obstructive pulmonary disease with (acute) exacerbation (principal); J18.9 Pneumonia, unspecified organism; I48.20 Chronic atrial fibrillation, unspecified; J96.10 Chronic respiratory failure, unspecified whether with hypoxia or hypercapnia; Z68.43 Body mass index [BMI] 50.0-59.9, adult; I50.22 Chronic systolic (congestive) heart failure; N17.9 Acute kidney failure, unspecified; I13.0 Hypertensive heart and chronic kidney disease with heart failure and stage 1 through stage 4 chronic kidney disease, or unspecified chronic kidney disease; J44.0 Chronic obstructive pulmonary disease with (acute) lower respiratory infection; N18.9 Chronic kidney disease, unspecified; G89.29 Other chronic pain; E03.9 Hypothyroidism, unspecified; E66.01 Morbid (severe) obesity due to excess calories; Z87.442 Personal history of urinary calculi; Z79.01 Long term (current) use of anticoagulants; Z99.81 Dependence on supplemental oxygen; Z23 Encounter for immunization; Z88.0 Allergy status to penicillin; Z88.2 Allergy status to sulfonamides; Z90.49 Acquired absence of other specified parts of digestive tract; Z82.49 Family history of ischemic heart disease and other diseases of the circulatory system; Z82.5 Family history of asthma and other chronic lower respiratory diseases; Z79.899 Other long term (current) drug therapy
CPT/HCPCS: 36415; 36600; 71045; 80048; 80053; 82803; 83605; 83735; 83880; 84145; 84443; 85018; 85025; 87040; 87081; 93005; 94640; 94760; 96365; 96375; 99285; G0378; J0696; J1100; J1940; J2920; J2930; J7030; J7512; Q2037

== ENCOUNTER 2019-08-03 15:29 | Inpatient (IN) | payer MEDICARE, MEDICAID ==
[~2019-08-03] VITALS: Ht 157.5 cm; Wt 132.7 kg
[~2019-08-03 15:29] MED LIST changes: -ALBU18HF2 IH; +CYCL-1 PO; -HYDR-3965 PO; -HYDR-4353 PO; +HYDR-4383 PO; -LEVO500T2 PO; -METH500T PO; -PRED20TA PO
--- NOTE | 2019-08-03 16:17 | NUR ---
PT IS RESTING QUIETLY ON GURNEY, NO RESP DISTRESS, TALKING 5-6 WORD SENTENCES, PER FAMILY PT HAS BEEN SEEING PEOPLE THAT ARE NOT THERE ETC, CONFUSED 1-2 MONTHS PER FAMILY, FELL BACKWARDS LANDED ON BACK AND BUTTOCK LAST NIGHT, BRUISE TO LEFT LOWER LEG FROM FALL LAST WEEK, ON BLOOD THINNERS
[2019-08-03] MEDS ORDERED: normal saline 1000ML IV soln IVB ONE (16:40)
[2019-08-03 17:07] LABS: BASOPHILS # (AUTO) 0.1 X10'3 (0-0.2); BASOPHILS % (AUTO) 0.7 % (0-1); EOSINOPHILS # (AUTO) 0.2 X10'3 (0-0.9); EOSINOPHILS % (AUTO) 1.6 % (0-6); HEMATOCRIT 28.4 % (35.0-45.0); HEMOGLOBIN 8.8 g/dl (12.0-16.0); LYMPHOCYTES # (AUTO) 1.5 X10'3 (1.1-4.8); MEAN CORPUSCULAR HEMOGLOBIN 25.6 PG (27.0-31.0); MEAN CORPUSCULAR HGB CONC 30.9 g/dL (33.0-36.5); MEAN CORPUSCULAR VOLUME 82.8 FL (78-98); MEAN PLATELET VOLUME 7.5 FL (7.4-10.4); MONOCYTES # (AUTO) 1.1 X10'3 (0-0.9); MONOCYTES % (AUTO) 10.8 % (2-12); NEUTROPHILS # (AUTO) 7.4 X10'3 (1.8-7.7); NEUTROPHILS % (AUTO) 71.9 % (42-75); PLATELET COUNT 339 X10'3 (140-440); RED BLOOD COUNT 3.43 X10'6 (4.20-5.60); RED CELL DISTRIBUTION WIDTH 18.1 % (11.5-14.5); WHITE BLOOD COUNT 10.3 X10'3 (4.5-11.0)
[2019-08-03 17:16] LABS: PARTIAL THROMBOPLASTIN TIME 28 SECONDS (22-32)
[2019-08-03 17:53] LABS: ALBUMIN 3.1 G/DL (3.4-5.0); ALBUMIN/GLOBULIN RATIO 0.8 (1.1-1.5); ALKALINE PHOSPHATASE 138 IU/L (46-116); ANION GAP 2 (8-16); ASPARTATE AMINO TRANSFERASE 17 U/L (10-37); BILIRUBIN,TOTAL 0.3 MG/DL (0.1-1.0); BLOOD UREA NITROGEN 36 MG/DL (7-18); BUN/CREATININE RATIO 17.4 (6.6-38.0); CALCIUM 8.2 MG/DL (8.5-10.1); CHLORIDE 101 MMOL/L (99-107); CREATININE 2.07 MG/DL (0.40-0.90); ETHANOL < 0.010 GM/DL (0.0-0.010); GLUCOSE 100 MG/DL (70-104); SODIUM 142 MMOL/L (135-145); TOTAL CARBON DIOXIDE 39.5 MMOL/L (24-32); TROPONIN I < 0.04 NG/ML (0.0-0.05); eGFR 23 ML/MIN
[2019-08-03 18:08] LABS: ALANINE AMINOTRANSFERASE 13 U/L (12-78)
[2019-08-03 18:22] LABS: CLARITY,URINE SLIGHTLY CLOUDY (Clear); COLOR,URINE YELLOW (Yellow); GLUCOSE, URINE NEGATIVE (Neg); KETONES,URINE TRACE mg/dl (Neg); LEUKOCYTE ESTERASE ,URINE NEGATIVE (Neg); NITRITES, URINE NEGATIVE (Neg); OCCULT BLOOD,URINE SMALL (Neg); PH,URINE 5.5 (4.8-8.0); PROTEIN,URINE NEGATIVE (Neg); UROBILINOGEN,URINE 0.2 E.U/dL (0.2-1.0)
[2019-08-03 18:27] LABS: UA COLLECTION TYPE STRAIGHT CATH
[2019-08-03 18:32] LABS: WBC,URINE 0-4 /HPF (0-4)
[2019-08-03 18:33] LABS: BACTERIA,URINE NONE SEEN /HPF (Neg); MUCUS STRANDS FEW /LPF (Neg); SQUAMOUS EPITHELIAL CELL,UR FEW /LPF (FEW); TRANSITIONAL EPI CELLS,URINE FEW /HPF
[2019-08-03 18:34] LABS: CAL OXALATE CRYSTALS 3+ /HPF (NEGATIVE)
[2019-08-03 18:43] LABS: URINE AMPHETAMINE SCREEN NEGATIVE (Neg); URINE BARBITUATE SCREEN NEGATIVE (Neg); URINE BENZODIAZEPINES SCREEN NEGATIVE (Neg); URINE CANNABINOID SCREEN NEGATIVE (Neg); URINE COCAINE SCREEN NEGATIVE (Neg); URINE METHADONE SCREEN NEGATIVE (Neg); URINE OPIATE SCREEN POSITIVE (Neg); URINE PHENCYCLIDINE SCREEN NEGATIVE (Neg)
[2019-08-03 19:00] LABS: ABG BASE EXCESS 9.9 mmol/L (-2.0-3.0); ABG HCO3 39.4 mmol/L (22.0-26.0); ABG OXYGEN SATURATION 96.9 % (95-98); ABG PCO2 (T) 90.6 mmHg (35.0-45.0); ABG PH (T) 7.255 (7.350-7.450); ABG PO2 (T) 101.8 mmHg (83-108); ALLEN'S TEST POSITIVE; FMetHb 0.3 % (0.3-1.12); FO2Hb 95.6 % (94-100); PATIENT TEMPERATURE 36.8; TOTAL HEMOGLOBIN 9.5 G/dl (12.0-16.0)
[2019-08-03] MEDS ORDERED: ipratropium/albuterol 3ml nebule NEB ONE (19:05)
--- NOTE | 2019-08-03 19:07 | NUR ---
RIANA SHETH STATED TRAUMA LEVEL 2 STATUS ENDED AT 7461
[2019-08-03] MEDS ORDERED: methylPREDNISolone sod succ 125mg/2ml vial IV ONE (19:10)
[2019-08-03] MEDS ORDERED: ondansetron/PF 4mg/2ml inj IV PRN (19:40)
[2019-08-03] MEDS ORDERED: mag hydrox/Alum hydrox/simeth 30ml oral suspension PO PRN (19:40)
[2019-08-03] MEDS ORDERED: acetaminophen 325mg tablet PO PRN (19:40)
[2019-08-03] MEDS ORDERED: magnesium hydroxide 30ml (MOM) UD suspension PO PRN (19:40)
[2019-08-03 20:30] VITALS: BP 128/69
[2019-08-03 20:36] LABS: ABG BASE EXCESS 11.5 mmol/L (-2.0-3.0); ABG HCO3 39.2 mmol/L (22.0-26.0); ABG OXYGEN SATURATION 86.9 % (95-98); ABG PCO2 (T) 72.2 mmHg (35.0-45.0); ABG PH (T) 7.352 (7.350-7.450); ABG PO2 (T) 51.9 mmHg (83-108); ALLEN'S TEST POSITIVE; FCOHb 1.2 % (0.5-1.5); FMetHb 0.3 % (0.3-1.12); FO2Hb 85.6 % (94-100); PATIENT TEMPERATURE 36.8; RESPIRATORY RATE 16 b/min; TOTAL HEMOGLOBIN 9.6 G/dl (12.0-16.0)
[2019-08-03] MEDS ORDERED: OMEP20TA23 PO (20:54)
[2019-08-03] MEDS ORDERED: AMIO200T61 PO (20:54)
[2019-08-03] MEDS ORDERED: APIX2.5T PO (20:54)
[2019-08-03 23:00] VITALS: BP 122/77
[2019-08-04] VITALS (10 sets, daily range): BP systolic 85–126; BP diastolic 54–93
[2019-08-04 05:24] LABS: BASOPHILS % (AUTO) 0.2 % (0-1); EOSINOPHILS % (AUTO) 0.1 % (0-6); HEMATOCRIT 31.2 % (35.0-45.0); HEMOGLOBIN 9.6 g/dl (12.0-16.0); LYMPHOCYTES # (AUTO) 0.5 X10'3 (1.1-4.8); LYMPHOCYTES % (AUTO) 5.8 % (21-51); MEAN CORPUSCULAR HGB CONC 30.6 g/dL (33.0-36.5); MEAN CORPUSCULAR VOLUME 81.6 FL (78-98); MEAN PLATELET VOLUME 7.6 FL (7.4-10.4); MONOCYTES # (AUTO) 0.1 X10'3 (0-0.9); MONOCYTES % (AUTO) 0.8 % (2-12); NEUTROPHILS # (AUTO) 7.7 X10'3 (1.8-7.7); NEUTROPHILS % (AUTO) 93.1 % (42-75); PLATELET COUNT 337 X10'3 (140-440); RED BLOOD COUNT 3.83 X10'6 (4.20-5.60); RED CELL DISTRIBUTION WIDTH 18.1 % (11.5-14.5); WHITE BLOOD COUNT 8.3 X10'3 (4.5-11.0)
[2019-08-04 05:31] LABS: ALANINE AMINOTRANSFERASE 16 U/L (12-78); ALBUMIN 3.1 G/DL (3.4-5.0); ALBUMIN/GLOBULIN RATIO 0.8 (1.1-1.5); ALKALINE PHOSPHATASE 148 IU/L (46-116); ANION GAP 2 (8-16); ASPARTATE AMINO TRANSFERASE 19 U/L (10-37); BILIRUBIN,TOTAL 0.4 MG/DL (0.1-1.0); BLOOD UREA NITROGEN 31 MG/DL (7-18); BUN/CREATININE RATIO 17.8 (6.6-38.0); CALCIUM 8.3 MG/DL (8.5-10.1); CHLORIDE 99 MMOL/L (99-107); CREATININE 1.74 MG/DL (0.40-0.90); GLUCOSE 149 MG/DL (70-104); POTASSIUM 4.9 MMOL/L (3.5-5.1); SODIUM 141 MMOL/L (135-145); TOTAL PROTEIN 7.2 G/DL (6.4-8.2); eGFR 28 ML/MIN
--- NOTE | 2019-08-04 06:00 | NUR ---
Patient in room PCU 3017. I have received report from Loly GARNER and had the opportunity to ask questions and assume patient care.
[2019-08-04] MEDS ORDERED: furosemide 40mg tablet PO SCH (08:00)
[2019-08-04] MEDS ORDERED: HYDROchlorothiazide 12.5mg capsule PO SCH (08:00)
[2019-08-04] MEDS ORDERED: diltiazem CD 120mg capsule (once-daily) PO SCH (08:00)
[2019-08-04] MEDS ORDERED: lisinopril 10 MG tablet PO SCH (08:00)
[2019-08-04] MEDS: apixaban 2.5mg tablet PO SCH ×2 (08:02→21:48)
[2019-08-04] MEDS: pantoprazole 40mg Tablet.DR PO SCH ×2 (08:03→21:48)
[2019-08-04] MEDS: amiodarone 200mg tablet PO SCH (08:03)
[2019-08-04] MEDS: famotidine 20mg tablet PO SCH (08:03)
[2019-08-04] MEDS: budesonide 0.5mg/2ml UD nebule IH SCH ×2 (08:07→20:50)
[2019-08-04] MEDS: albuterol 2.5 MG/3 ML nebule NEB PRN (08:07)
--- NOTE | 2019-08-04 10:49 | NUR ---
Received call from Yosvany Ramirez, pt. son and gave him update on pt.
[2019-08-04 11:05] LABS: ABG OXYGEN SATURATION 93.2 % (95-98); ABG PH (T) 7.373 (7.350-7.450); ABG PO2 (T) 66.7 mmHg (83-108); ALLEN'S TEST POSITIVE; FCOHb 0.5 % (0.5-1.5); FLOW 2 L/min; FMetHb 0.3 % (0.3-1.12); FO2Hb 92.5 % (94-100); TOTAL HEMOGLOBIN 9.6 G/dl (12.0-16.0)
--- NOTE | 2019-08-04 14:26 | NUR ---
Diarrhea x3. Spoke with microbiology prior to completing test requisition d/t stool sample being a "chunk" of the watery BM. Per micro, it is advised not to proceed d/t the stool being too formed. Will continue to monitor diarrhea. Addendum: 08/04/19 at 1429 by Keenan Gar RN Amended: Links added.
[2019-08-04 14:50] LABS: OCCULT BLOOD STOOL NEGATIVE (Neg)
[2019-08-04] MEDS: HYDROcodone/acetaminophen 5mg/325mg tablet PO PRN ×2 (15:50→21:58)
[2019-08-04] MEDS: tizanidine 4mg tablet PO PRN (15:50)
--- NOTE | 2019-08-04 18:15 | NUR ---
Patient in room PCU 3017. I have received report from Rhoda GARNER and had the opportunity to ask questions and assume patient care.
--- NOTE | 2019-08-04 18:36 | NUR ---
Problems reprioritized. Patient report given, questions answered & plan of care reviewed with Kay GARNER.
[2019-08-04] MEDS: levoTHYROXINE sod inj. 100mcg/5 ml vial IV ONE (19:10)
[2019-08-04] MEDS: Melatonin 3mg tablet PO SCH (21:49)
[2019-08-05] VITALS (19 sets, daily range): BP systolic 62–137; BP diastolic 34–117
[2019-08-05] MEDS: tizanidine 4mg tablet PO PRN ×3 (02:59→19:13)
[2019-08-05] MEDS: HYDROcodone/acetaminophen 5mg/325mg tablet PO PRN ×3 (03:00→19:13)
[2019-08-05] MEDS: levoTHYROXINE sod inj. 100mcg/5 ml vial IV ONE (04:40)
--- NOTE | 2019-08-05 06:25 | NUR ---
Problems reprioritized. Patient report given, questions answered & plan of care reviewed with Rhoda GARNER.
[2019-08-05 06:29] LABS: BASOPHILS % (AUTO) 0.3 % (0-1); EOSINOPHILS % (AUTO) 0.1 % (0-6); HEMATOCRIT 24.5 % (35.0-45.0); HEMOGLOBIN 7.9 g/dl (12.0-16.0); LYMPHOCYTES # (AUTO) 1.5 X10'3 (1.1-4.8); LYMPHOCYTES % (AUTO) 15.7 % (21-51); MEAN CORPUSCULAR HGB CONC 32.3 g/dL (33.0-36.5); MEAN CORPUSCULAR VOLUME 80.5 FL (78-98); MEAN PLATELET VOLUME 7.6 FL (7.4-10.4); MONOCYTES # (AUTO) 0.7 X10'3 (0-0.9); MONOCYTES % (AUTO) 7.6 % (2-12); NEUTROPHILS # (AUTO) 7.1 X10'3 (1.8-7.7); NEUTROPHILS % (AUTO) 76.3 % (42-75); PLATELET COUNT 278 X10'3 (140-440); RED BLOOD COUNT 3.04 X10'6 (4.20-5.60); RED CELL DISTRIBUTION WIDTH 18.1 % (11.5-14.5); WHITE BLOOD COUNT 9.4 X10'3 (4.5-11.0)
[2019-08-05 07:17] LABS: ALANINE AMINOTRANSFERASE 17 U/L (12-78); ALBUMIN 2.7 G/DL (3.4-5.0); ALBUMIN/GLOBULIN RATIO 0.8 (1.1-1.5); ALKALINE PHOSPHATASE 115 IU/L (46-116); ANION GAP 0 (8-16); ASPARTATE AMINO TRANSFERASE 17 U/L (10-37); BILIRUBIN,TOTAL 0.2 MG/DL (0.1-1.0); BLOOD UREA NITROGEN 39 MG/DL (7-18); BUN/CREATININE RATIO 19.6 (6.6-38.0); CHLORIDE 99 MMOL/L (99-107); CREATININE 1.99 MG/DL (0.40-0.90); FERRITIN 39 NG/ML (8-252); GLUCOSE 98 MG/DL (70-104); POTASSIUM 5.6 MMOL/L (3.5-5.1); SODIUM 138 MMOL/L (135-145); TOTAL CARBON DIOXIDE 39.1 MMOL/L (24-32); TOTAL PROTEIN 6.2 G/DL (6.4-8.2); eGFR 24 ML/MIN
[2019-08-05 07:39] LABS: % IRON SATURATION 4 % (11-46); IRON 17 UG/DL (49-151); TOTAL IRON BINDING CAPACITY 389 UG/DL (259-388)
[2019-08-05] MEDS ORDERED: sodium polystyrene sulfonate 15gm/60ml oral suspension PO ONE (07:50)
[2019-08-05] MEDS ORDERED: furosemide 40mg tablet PO SCH (08:00)
[2019-08-05] MEDS ORDERED: diltiazem CD 120mg capsule (once-daily) PO SCH (08:00)
[2019-08-05] MEDS ORDERED: lisinopril 10 MG tablet PO SCH (08:00)
[2019-08-05] MEDS: pantoprazole 40mg Tablet.DR PO SCH ×2 (08:15→20:06)
[2019-08-05] MEDS: levoTHYROXINE 100mcg tablet PO SCH (08:15)
[2019-08-05] MEDS: furosemide 40mg tablet PO SCH (08:15)
[2019-08-05] MEDS: apixaban 2.5mg tablet PO SCH ×2 (08:15→20:06)
[2019-08-05] MEDS: famotidine 20mg tablet PO SCH (08:15)
[2019-08-05] MEDS: amiodarone 200mg tablet PO SCH (08:15)
[2019-08-05] MEDS: nystatin 15 GM powder TP SCH ×3 (08:16→21:03)
[2019-08-05 08:39] LABS: C DIFF ANTIGEN NEGATIVE (NEGATIVE); C DIFF SPECIMEN=DIARRHEA? ACCEPTABLE; C DIFFICILE TOXINS A&B NEGATIVE (Neg)
[2019-08-05] MEDS: albuterol 2.5 MG/3 ML nebule NEB PRN ×2 (08:48→21:03)
[2019-08-05] MEDS: budesonide 0.5mg/2ml UD nebule IH SCH ×2 (08:48→21:03)
[2019-08-05] MEDS ORDERED: SODIUM ZIRCONIUM CYCLOSILICATE 10 GM POWD.PACK PO ONE (09:00)
[2019-08-05] MEDS: iron sucrose complex injection 200 MG in normal saline 100ml IV soln 100 ML IV SCH (09:45)
--- NOTE | 2019-08-05 16:03 | NUR ---
Called MD for BP 75/50 HR 60, received orders for 500cc NS bolus and to call MD if SBP < [address] Osei
--- NOTE | 2019-08-05 18:51 | NUR ---
Problems reprioritized. Patient report given, questions answered & plan of care reviewed with Pat RN.
[2019-08-05] MEDS: Melatonin 3mg tablet PO SCH (21:00)
[2019-08-06] VITALS (7 sets, daily range): BP systolic 91–121; BP diastolic 63–77
[2019-08-06] MEDS: budesonide 0.5mg/2ml UD nebule IH SCH ×2 (06:38→19:38)
[2019-08-06] MEDS: albuterol 2.5 MG/3 ML nebule NEB PRN (06:38)
[2019-08-06 06:40] LABS: BASOPHILS % (AUTO) 0.5 % (0-1); EOSINOPHILS # (AUTO) 0.1 X10'3 (0-0.9); EOSINOPHILS % (AUTO) 1.4 % (0-6); HEMATOCRIT 25.5 % (35.0-45.0); HEMOGLOBIN 8.1 g/dl (12.0-16.0); LYMPHOCYTES # (AUTO) 1.9 X10'3 (1.1-4.8); LYMPHOCYTES % (AUTO) 25.3 % (21-51); MEAN CORPUSCULAR HEMOGLOBIN 25.6 PG (27.0-31.0); MEAN CORPUSCULAR HGB CONC 31.8 g/dL (33.0-36.5); MEAN CORPUSCULAR VOLUME 80.4 FL (78-98); MEAN PLATELET VOLUME 7.7 FL (7.4-10.4); MONOCYTES # (AUTO) 0.6 X10'3 (0-0.9); MONOCYTES % (AUTO) 8.5 % (2-12); NEUTROPHILS # (AUTO) 4.7 X10'3 (1.8-7.7); NEUTROPHILS % (AUTO) 64.3 % (42-75); PLATELET COUNT 305 X10'3 (140-440); RED BLOOD COUNT 3.17 X10'6 (4.20-5.60); WHITE BLOOD COUNT 7.4 X10'3 (4.5-11.0)
[2019-08-06 06:50] LABS: ALANINE AMINOTRANSFERASE 16 U/L (12-78); ALBUMIN 2.8 G/DL (3.4-5.0); ALBUMIN/GLOBULIN RATIO 0.8 (1.1-1.5); ALKALINE PHOSPHATASE 113 IU/L (46-116); ANION GAP 3 (8-16); ASPARTATE AMINO TRANSFERASE 15 U/L (10-37); BILIRUBIN,TOTAL 0.2 MG/DL (0.1-1.0); BLOOD UREA NITROGEN 46 MG/DL (7-18); BUN/CREATININE RATIO 17.2 (6.6-38.0); CALCIUM 8.1 MG/DL (8.5-10.1); CHLORIDE 98 MMOL/L (99-107); CREATININE 2.67 MG/DL (0.40-0.90); GLUCOSE 79 MG/DL (70-104); POTASSIUM 4.6 MMOL/L (3.5-5.1); SODIUM 139 MMOL/L (135-145); TOTAL CARBON DIOXIDE 37.8 MMOL/L (24-32); TOTAL PROTEIN 6.2 G/DL (6.4-8.2); eGFR 17 ML/MIN
[2019-08-06] MEDS: furosemide 40mg tablet PO SCH (08:00)
[2019-08-06] MEDS: nystatin 15 GM powder TP SCH ×3 (08:00→21:25)
[2019-08-06] MEDS: apixaban 2.5mg tablet PO SCH ×2 (08:01→19:20)
[2019-08-06] MEDS: levoTHYROXINE 100mcg tablet PO SCH (08:02)
[2019-08-06] MEDS: famotidine 20mg tablet PO SCH (08:02)
[2019-08-06] MEDS: pantoprazole 40mg Tablet.DR PO SCH ×2 (08:04→19:20)
[2019-08-06] MEDS: iron sucrose complex injection 200 MG in normal saline 100ml IV soln 100 ML IV SCH ×2 (08:04→14:20)
[2019-08-06] MEDS: amiodarone 200mg tablet PO SCH (08:04)
--- NOTE | 2019-08-06 09:37 | NUR ---
called MD for BP of 81/59 map 64 and pt c/o dizziness and blurry vision, held lisinopril lasix and diltiazem, received orders to give 250cc bolus of NS and ok to hold medications and to change parameters for meds to hold for SBP < [address] Osei.
[2019-08-06] MEDS ORDERED: normal saline 1000ml 1,000 ML IV ONE (09:45)
[2019-08-06] MEDS: acetaminophen 325mg tablet PO PRN ×3 (13:41→21:56)
[2019-08-06] MEDS ORDERED: lactulose 20gm/30ml cup PO PRN (17:10)
--- NOTE | 2019-08-06 18:30 | NUR ---
Problems reprioritized. Patient report given, questions answered & plan of care reviewed with Masoud GARNER.
[2019-08-06] MEDS: ipratropium/albuterol 3ml nebule NEB SCH ×2 (19:38→23:46)
[2019-08-06] MEDS: Melatonin 3mg tablet PO SCH ×2 (21:00→23:22)
[2019-08-06 23:59] LABS: CLARITY,URINE CLEAR (Clear); COLOR,URINE YELLOW (Yellow); GLUCOSE, URINE NEGATIVE (Neg); KETONES,URINE NEGATIVE (Neg); LEUKOCYTE ESTERASE ,URINE MODERATE (Neg); NITRITES, URINE NEGATIVE (Neg); OCCULT BLOOD,URINE NEGATIVE (Neg); PROTEIN,URINE NEGATIVE (Neg); UROBILINOGEN,URINE 0.2 E.U/dL (0.2-1.0)
[2019-08-07 00:06] LABS: UA COLLECTION TYPE CLN CATCH MIDSTREAM
[2019-08-07 00:08] LABS: BACTERIA,URINE 1+ /HPF (Neg); MUCUS STRANDS NONE SEEN /LPF (Neg); RBC,URINE NONE SEEN /HPF (0-2); SQUAMOUS EPITHELIAL CELL,UR MODERATE /LPF (FEW); TOTAL PROTEIN,URINE RANDOM 7.9 MG/DL
[2019-08-07 00:30] LABS: UA EOSINOPHILS RARE EOS /HPF
[2019-08-07 02:00] VITALS: BP 120/98
[2019-08-07] MEDS: ipratropium/albuterol 3ml nebule NEB SCH ×9 (03:00→23:40)
[2019-08-07] MEDS: acetaminophen 325mg tablet PO PRN ×4 (04:38→21:21)
[2019-08-07 05:45] LABS: BASOPHILS % (AUTO) 0.5 % (0-1); EOSINOPHILS # (AUTO) 0.1 X10'3 (0-0.9); HEMATOCRIT 27.3 % (35.0-45.0); HEMOGLOBIN 8.6 g/dl (12.0-16.0); LYMPHOCYTES # (AUTO) 1.4 X10'3 (1.1-4.8); LYMPHOCYTES % (AUTO) 18.9 % (21-51); MEAN CORPUSCULAR HEMOGLOBIN 25.1 PG (27.0-31.0); MEAN CORPUSCULAR HGB CONC 31.4 g/dL (33.0-36.5); MEAN CORPUSCULAR VOLUME 79.8 FL (78-98); MEAN PLATELET VOLUME 7.5 FL (7.4-10.4); MONOCYTES # (AUTO) 0.7 X10'3 (0-0.9); MONOCYTES % (AUTO) 8.7 % (2-12); NEUTROPHILS # (AUTO) 5.4 X10'3 (1.8-7.7); NEUTROPHILS % (AUTO) 70.9 % (42-75); PLATELET COUNT 341 X10'3 (140-440); RED BLOOD COUNT 3.42 X10'6 (4.20-5.60); WHITE BLOOD COUNT 7.6 X10'3 (4.5-11.0)
[2019-08-07 06:00] VITALS: BP 110/75
[2019-08-07 06:20] LABS: ALANINE AMINOTRANSFERASE 19 U/L (12-78); ALBUMIN 3.1 G/DL (3.4-5.0); ALBUMIN/GLOBULIN RATIO 0.9 (1.1-1.5); ALKALINE PHOSPHATASE 124 IU/L (46-116); ANION GAP 2 (8-16); ASPARTATE AMINO TRANSFERASE 21 U/L (10-37); BILIRUBIN,TOTAL 0.3 MG/DL (0.1-1.0); BLOOD UREA NITROGEN 36 MG/DL (7-18); BUN/CREATININE RATIO 18.8 (6.6-38.0); CALCIUM 8.8 MG/DL (8.5-10.1); CHLORIDE 100 MMOL/L (99-107); CREATININE 1.92 MG/DL (0.40-0.90); GLUCOSE 92 MG/DL (70-104); POTASSIUM 4.2 MMOL/L (3.5-5.1); SODIUM 140 MMOL/L (135-145); TOTAL CARBON DIOXIDE 37.7 MMOL/L (24-32); TOTAL PROTEIN 6.7 G/DL (6.4-8.2); eGFR 25 ML/MIN
--- NOTE | 2019-08-07 06:30 | NUR ---
Patient in room PCU 3017. I have received report from PATSY Meredith and had the opportunity to ask questions and assume patient care.
[2019-08-07] MEDS: budesonide 0.5mg/2ml UD nebule IH SCH ×2 (07:01→19:36)
[2019-08-07] MEDS ORDERED: diltiazem CD 120mg capsule (once-daily) PO SCH (08:00)
[2019-08-07] MEDS ORDERED: lisinopril 5mg tablet PO SCH (08:00)
[2019-08-07] MEDS: nystatin 15 GM powder TP SCH ×3 (08:00→21:20)
[2019-08-07] MEDS: levoTHYROXINE 100mcg tablet PO SCH (09:13)
[2019-08-07] MEDS: apixaban 2.5mg tablet PO SCH ×2 (09:13→19:55)
[2019-08-07] MEDS: pantoprazole 40mg Tablet.DR PO SCH ×2 (09:13→19:55)
[2019-08-07] MEDS: amiodarone 200mg tablet PO SCH (09:13)
[2019-08-07] MEDS: famotidine 20mg tablet PO SCH (09:13)
[2019-08-07] MEDS: iron sucrose complex injection 200 MG in normal saline 100ml IV soln 100 ML IV SCH (09:22)
--- NOTE | 2019-08-07 10:00 | NUR ---
pt IV infiltrated. Charge unable to place new IV. Will continue to monitor and attempt to find placement for new IV.
[2019-08-07] MEDS ORDERED: levoFLOXACIN-Levaquin 500mg/D5 100 ML IV ONE (10:05)
[2019-08-07 11:00] VITALS: BP 117/71
[2019-08-07 15:00] VITALS: BP 108/86
--- NOTE | 2019-08-07 16:23 | NUR ---
the pt is wondering what kinds of tests Dr Osei wants to run, as she is awaiting her discharge. No new orders have been placed since this morning. Dr Osei was called, with no answer. Will let the pt know we are still awaiting new orders.
[2019-08-07 18:00] VITALS: BP 121/78
--- NOTE | 2019-08-07 18:20 | NUR ---
Patient in room PCU 3014T. I have received report from PATSY Martínez and had the opportunity to ask questions and assume patient care.
--- NOTE | 2019-08-07 18:22 | NUR ---
Problems reprioritized. Patient report given, questions answered & plan of care reviewed with PATSY Jose.
[2019-08-07] MEDS: Melatonin 3mg tablet PO SCH (21:21)
[2019-08-07 22:00] VITALS: BP 122/65
[2019-08-08 02:00] VITALS: BP 114/68
[2019-08-08] MEDS: acetaminophen 325mg tablet PO PRN ×2 (02:42→07:23)
[2019-08-08] MEDS: ipratropium/albuterol 3ml nebule NEB SCH ×3 (03:13→11:29)
[2019-08-08 05:34] LABS: ALANINE AMINOTRANSFERASE 16 U/L (12-78); ALBUMIN/GLOBULIN RATIO 0.8 (1.1-1.5); ALKALINE PHOSPHATASE 122 IU/L (46-116); ANION GAP 1 (8-16); ASPARTATE AMINO TRANSFERASE 22 U/L (10-37); BILIRUBIN,TOTAL 0.3 MG/DL (0.1-1.0); BLOOD UREA NITROGEN 25 MG/DL (7-18); BUN/CREATININE RATIO 16.3 (6.6-38.0); CALCIUM 8.8 MG/DL (8.5-10.1); CHLORIDE 101 MMOL/L (99-107); CREATININE 1.53 MG/DL (0.40-0.90); GLUCOSE 93 MG/DL (70-104); POTASSIUM 4.1 MMOL/L (3.5-5.1); SODIUM 141 MMOL/L (135-145); TOTAL CARBON DIOXIDE 39.5 MMOL/L (24-32); TOTAL PROTEIN 6.6 G/DL (6.4-8.2); eGFR 33 ML/MIN
[2019-08-08 05:42] LABS: BASOPHILS % (AUTO) 0.7 % (0-1); EOSINOPHILS # (AUTO) 0.1 X10'3 (0-0.9); EOSINOPHILS % (AUTO) 1.9 % (0-6); HEMATOCRIT 27.2 % (35.0-45.0); HEMOGLOBIN 8.7 g/dl (12.0-16.0); LYMPHOCYTES # (AUTO) 1.3 X10'3 (1.1-4.8); LYMPHOCYTES % (AUTO) 17.2 % (21-51); MEAN CORPUSCULAR HEMOGLOBIN 26.1 PG (27.0-31.0); MEAN CORPUSCULAR HGB CONC 32.1 g/dL (33.0-36.5); MEAN CORPUSCULAR VOLUME 81.3 FL (78-98); MEAN PLATELET VOLUME 8.1 FL (7.4-10.4); MONOCYTES # (AUTO) 0.7 X10'3 (0-0.9); MONOCYTES % (AUTO) 9.8 % (2-12); NEUTROPHILS # (AUTO) 5.4 X10'3 (1.8-7.7); NEUTROPHILS % (AUTO) 70.4 % (42-75); PLATELET COUNT 345 X10'3 (140-440); RED BLOOD COUNT 3.35 X10'6 (4.20-5.60); RED CELL DISTRIBUTION WIDTH 18.1 % (11.5-14.5); WHITE BLOOD COUNT 7.6 X10'3 (4.5-11.0)
[2019-08-08 06:00] VITALS: BP 131/71
--- NOTE | 2019-08-08 06:20 | NUR ---
Patient in room PCU 3017. I have received report from PATSY Jose and had the opportunity to ask questions and assume patient care.
[2019-08-08] MEDS: nystatin 15 GM powder TP SCH (07:22)
[2019-08-08] MEDS: famotidine 20mg tablet PO SCH (07:23)
[2019-08-08] MEDS: levoTHYROXINE 100mcg tablet PO SCH (07:23)
[2019-08-08] MEDS: apixaban 2.5mg tablet PO SCH (07:23)
[2019-08-08] MEDS: amiodarone 200mg tablet PO SCH (07:23)
[2019-08-08] MEDS: iron sucrose complex injection 200 MG in normal saline 100ml IV soln 100 ML IV SCH (07:23)
[2019-08-08] MEDS: pantoprazole 40mg Tablet.DR PO SCH (07:23)
[2019-08-08] MEDS: budesonide 0.5mg/2ml UD nebule IH SCH (07:55)
[2019-08-08] MEDS ORDERED: levoFLOXACIN-Levaquin 250mg/D5 50 ML IV SCH (08:00)
[2019-08-08 11:00] VITALS: BP 103/62
[2019-08-08] MEDS ORDERED: IPRA3AMP9 NEB (12:29)
--- NOTE | 2019-08-08 14:11 | NUR ---
pt discharged. IV d/c'd, tele removed, all belongings sent with pt. wheeled down by hospital staff. left in private vehicle with daughter. Rx sent to [facility]. Called Dr Osei for Rx for RLS to be sent; per pt she stated she would send it.
[2019-08-08] MEDS ORDERED: LEVO50TA PO (16:21)
[2019-08-08] MEDS ORDERED: lactobacillus rhamnosus 10,000 MMU CELLS/CAPSULE PO SCH (20:00)
[2019-08-09 06:09] LABS: IMMUNOGLOBULIN A, QN, SERUM 319 mg/dL (64-422); IMMUNOGLOBULIN G, QN, SERUM 926 mg/dL (700-1600); IMMUNOGLOBULIN M, QN, SERUM 165 mg/dL (26-217)
--- NOTE | 2019-08-09 16:10 | NUR ---
Case Management DC follow up: spoke to pt/daughter/POA via telephone states pt other Daughter/Janel is pt [facility] worker and stakate pt is doing fine, compliant w/O2, but not CPAP. They are working on that. Family deciding to wait for HHS until after pandemic subsides/but still would like PT, RT and nursing assist. Let them know to go over w/PCP Ritesh. Family spoke about finding a new PCP, but agrees w/everything going on it is best to stay w/current as pt has important follow ups and labs that need to be addressed and may take too long to find new one before all of the follow ups are complete. reports pt is not experiencing acute CP, emergent general pain, SOB, respiratory distress, NV, dizziness, syncope episodes, abd pain, [place], blurry vision. Verbalizes understanding of medications and why prescribed. Taking as ordered, no ase noted r/t polypharmacy/new meds. verbalizes understanding of s/s that would warrant 9-11/ER visit for evaluation. Acknowledges importance of scheduling/keeping appointments w/[facility] for TSH follow up 6 weeks, [facility] 6-8 wks r/t CKD/referrals/specialists. Needs met, questions answered at DC. No further questions at this time.
[2019-08-09 17:08] LABS: ANTINUCLEAR ANTIBODIES Negative (Negative)
== END 2019-08-08 13:45 | disposition home health service (06) | DRG 682 ==
LOC: ER 15:29 → ED HOLD 19:40 → PCU 3S 21:00
PROVIDERS: ADMIT Internal Medicine; ATTEND Internal Medicine
PROC: 5A09357 Assistance with Respiratory Ventilation, Less than 24 Consecutive Hours, Continuous Positive Airway Pressure (ICD-10-PCS; principal; 2019-08-03)
DX: N17.9 Acute kidney failure, unspecified (principal); J96.22 Acute and chronic respiratory failure with hypercapnia; I50.33 Acute on chronic diastolic (congestive) heart failure; I13.0 Hypertensive heart and chronic kidney disease with heart failure and stage 1 through stage 4 chronic kidney disease, or unspecified chronic kidney disease; J44.1 Chronic obstructive pulmonary disease with (acute) exacerbation; E87.2 Acidosis; G93.40 Encephalopathy, unspecified; I25.10 Atherosclerotic heart disease of native coronary artery without angina pectoris; E66.01 Morbid (severe) obesity due to excess calories; G47.33 Obstructive sleep apnea (adult) (pediatric)
CPT/HCPCS: 36415; 36600; 70450; 71045; 71046; 73590; 76604; 80053; 80305; 80320; 81001; 81003; 82140; 82272; 82570; 82607; 82728; 82784; 82803; 82948; 83540; 83550; 83880; 84156; 84300; 84443; 84484; 85018; 85025; 85610; 85730; 86038; 86334; 87045; 87046; 87081; 87207; 87324; 87449; 93005; 93306; 94640; 94660; 94760; 96374; 97110; 97112; 97530; 99285; G0378; J1756; J1956; J2930; J7030; J7626

== ENCOUNTER 2019-08-24 09:44 | Emergency (ER) | payer MEDICARE, MEDICAID ==
[~2019-08-24] VITALS: Ht 157.5 cm; Wt 136.0 kg
[~2019-08-24 09:44] MED LIST changes: -ALBU2.5V13 NEB; +AMIO200T61 PO; +APIX2.5T PO; -APIX5TAB3 PO; -COMMODE; -CYCL-1 PO; -ESOM20CA PO; -FLUT16SP26 BOTHNARES; -FURO40TA4 PO; +HYDR-3964 PO; -HYDR-4383 PO; +IPRA3AMP31 IH; -LEVO125T8 PO; +LEVO50TA8 PO; -MONT10TA21 PO; +OMEP20TA23 PO; -POTA10TA36 PO
--- NOTE | 2019-08-24 10:50 | NUR ---
SPOKE WITH RYLEE BENTON REGARDING PATIENT EXPIRATORY WHEEZE AND RECOMMENDATION OF BREATHING TREATMENT, PATIENT DENIES SHORTNESS OF BREATH. PROVIDER STATED BREATHING TREATMENT NOT WARRANTED AT THIS TIME.
[2019-08-24 11:10] LABS: ALANINE AMINOTRANSFERASE 27 U/L (12-78); ALBUMIN 3.1 G/DL (3.4-5.0); ALBUMIN/GLOBULIN RATIO 0.9 (1.1-1.5); ALKALINE PHOSPHATASE 109 IU/L (46-116); ANION GAP -2 (8-16); ASPARTATE AMINO TRANSFERASE 16 U/L (10-37); BASOPHILS # (AUTO) 0.1 X10'3 (0-0.2); BASOPHILS % (AUTO) 0.5 % (0-1); BILIRUBIN,TOTAL 0.4 MG/DL (0.1-1.0); BLOOD UREA NITROGEN 50 MG/DL (7-18); BUN/CREATININE RATIO 30.5 (6.6-38.0); CALCIUM 8.7 MG/DL (8.5-10.1); CHLORIDE 99 MMOL/L (99-107); CREATININE 1.64 MG/DL (0.40-0.90); EOSINOPHILS # (AUTO) 0.1 X10'3 (0-0.9); EOSINOPHILS % (AUTO) 1.4 % (0-6); GLUCOSE 109 MG/DL (70-104); HEMATOCRIT 28.8 % (35.0-45.0); HEMOGLOBIN 8.9 g/dl (12.0-16.0); LYMPHOCYTES # (AUTO) 1.3 X10'3 (1.1-4.8); LYMPHOCYTES % (AUTO) 12.5 % (21-51); MEAN CORPUSCULAR HEMOGLOBIN 26.7 PG (27.0-31.0); MEAN CORPUSCULAR HGB CONC 31.1 g/dL (33.0-36.5); MEAN CORPUSCULAR VOLUME 86.1 FL (78-98); MONOCYTES # (AUTO) 0.9 X10'3 (0-0.9); MONOCYTES % (AUTO) 9.1 % (2-12); NEUTROPHILS % (AUTO) 76.5 % (42-75); PLATELET COUNT 271 X10'3 (140-440); POTASSIUM 4.7 MMOL/L (3.5-5.1); RED BLOOD COUNT 3.34 X10'6 (4.20-5.60); SODIUM 138 MMOL/L (135-145); TOTAL PROTEIN 6.4 G/DL (6.4-8.2); WHITE BLOOD COUNT 10.4 X10'3 (4.5-11.0); eGFR 30 ML/MIN
[2019-08-24 11:12] LABS: TOTAL CARBON DIOXIDE 41.4 MMOL/L (24-32)
[2019-08-24] MEDS ORDERED: LACT10SO PO (11:23)
[2019-08-24] MEDS ORDERED: SENN-263 PO (11:23)
[2019-08-24] MEDS ORDERED: CEPH-572 PO (11:23)
[2019-08-24] MEDS ORDERED: POLY119P2 PO (11:23)
[2019-08-24] MEDS ORDERED: FURO40TA4 PO (11:23)
[2019-08-24] MEDS ORDERED: ACET-2144 PO (11:23)
[2019-08-24] MEDS ORDERED: LACT1CAP57 PO (11:23)
[2019-08-24] MEDS ORDERED: PRED10TA PO (11:23)
[2019-08-24] MEDS ORDERED: BISA10SU60 RC (11:23)
[2019-08-24 11:54] LABS: ANISOCYTOSIS 3+; HYPOCHROMASIA 1+; PLATELET ESTIMATE NORMAL; STOMATOCYTES 1+
[2019-08-24 11:55] LABS: ELLIPTOCYTES FEW; SCHISTOCYTES FEW
[2019-08-24] MEDS ORDERED: normal saline 1000ML IV soln IVB ONE (11:55)
[2019-08-24] MEDS ORDERED: FURO-150 PO (12:18)
--- NOTE | 2019-08-24 13:21 | NUR ---
Report given to RN at [facility], all questions and concerns addressed. Per facility call to be made to [employer] for transport back to facility.
--- NOTE | 2019-08-24 13:23 | NUR ---
Call to [employer] for transportation at this time. Addendum: 08/24/19 at 1326 by MANISHA ETA 10 min.
[2019-08-24 13:44] VITALS: BP 135/79
== END 2019-08-24 13:59 | disposition home or self-care (01) ==
LOC: ER 09:44
DX: R79.89 Other specified abnormal findings of blood chemistry (principal); I48.91 Unspecified atrial fibrillation; I50.9 Heart failure, unspecified; I11.0 Hypertensive heart disease with heart failure; J44.9 Chronic obstructive pulmonary disease, unspecified; E03.9 Hypothyroidism, unspecified; G89.29 Other chronic pain; Z90.49 Acquired absence of other specified parts of digestive tract; Z98.890 Other specified postprocedural states; Z88.0 Allergy status to penicillin; Z88.2 Allergy status to sulfonamides; Z79.01 Long term (current) use of anticoagulants; Z79.899 Other long term (current) drug therapy
CPT/HCPCS: 36415; 80053; 85025; 85610; 86885; 86900; 86901; 99284; J7030